=== PATIENT | male | born 1930 | race Caucasian/White ===

== ENCOUNTER 2021-02-28 10:54 | Inpatient (IN) ==
[2021-02-28] MEDS: QUEtiapine Fumarate 100 MG TABLET PO SCH (20:59)
[2021-03-01] MEDS: *HR* LORazepam 0.5 MG TABLET PO PRN ×3 (02:45→20:11)
[2021-03-01] MEDS: Haloperidol Oral Conc 10 MG/5 ML UDC PO PRN ×2 (04:28→10:28)
[2021-03-01] MEDS: Aspirin Enteric Coated 81 MG Tablet PO SCH (09:30)
[2021-03-01] MEDS: Finasteride 5 MG TABLET PO SCH (09:31)
[2021-03-01] MEDS: lisinopriL 5 MG TABLET PO SCH (09:31)
[2021-03-01] MEDS: Furosemide 40 MG TABLET PO SCH (09:31)
[2021-03-01] MEDS: QUEtiapine Fumarate 100 MG TABLET PO SCH (20:10)
[2021-03-02] MEDS: *HR* LORazepam 0.5 MG TABLET PO PRN ×2 (06:54→19:45)
[2021-03-02] MEDS: lisinopriL 5 MG TABLET PO SCH (08:51)
[2021-03-02] MEDS: Finasteride 5 MG TABLET PO SCH (08:51)
[2021-03-02] MEDS: Furosemide 40 MG TABLET PO SCH (08:52)
[2021-03-02] MEDS: Aspirin Enteric Coated 81 MG Tablet PO SCH (08:52)
[2021-03-02] MEDS: QUEtiapine Fumarate 100 MG TABLET PO SCH (19:45)
[2021-03-03] MEDS: Furosemide 40 MG TABLET PO SCH (08:20)
[2021-03-03] MEDS: Finasteride 5 MG TABLET PO SCH (08:20)
[2021-03-03] MEDS: Aspirin Enteric Coated 81 MG Tablet PO SCH (08:20)
[2021-03-03] MEDS: lisinopriL 5 MG TABLET PO SCH (08:20)
[2021-03-03] MEDS: Haloperidol Oral Conc 10 MG/5 ML UDC PO PRN ×3 (08:20→21:41)
[2021-03-03] MEDS: *HR* LORazepam 0.5 MG TABLET PO PRN (11:52)
[2021-03-03] MEDS: QUEtiapine Fumarate 100 MG TABLET PO SCH (20:04)
[2021-03-04] MEDS: Haloperidol Oral Conc 10 MG/5 ML UDC PO PRN ×5 (01:48→20:06)
[2021-03-04] MEDS: Furosemide 40 MG TABLET PO SCH (08:27)
[2021-03-04] MEDS: lisinopriL 5 MG TABLET PO SCH (08:27)
[2021-03-04] MEDS: Finasteride 5 MG TABLET PO SCH (08:27)
[2021-03-04] MEDS: Aspirin Enteric Coated 81 MG Tablet PO SCH (08:27)
[2021-03-04] MEDS: *HR* LORazepam 0.5 MG TABLET PO PRN ×2 (08:27→17:56)
[2021-03-04] MEDS ORDERED: Hyoscyamine SL 0.125 MG TAB.SUBL SL PRN (10:42)
[2021-03-04 14:19] LABS: Bilirubin,Urine Negative (Negative); Blood,Urine Negative (Negative); Clarity,Urine Clear (Clear); Color,Urine Yellow (Yellow); Glucose,Urine (UA) Normal (Normal); Ketones,Urine Negative (Negative); Leukocyte Esterase,Urine Negative (Negative); Nitrite,Urine Negative (Negative); PH,Urine 5.5 pH Units (5.0-8.0); Protein,Urine Negative (Neg-Trace); Urobilinogen,Urine Normal (Normal)
[2021-03-04] MEDS: Hyoscyamine SL 0.125 MG TAB.SUBL SL PRN ×2 (15:50→20:06)
[2021-03-04] MEDS: QUEtiapine Fumarate 100 MG TABLET PO SCH (20:06)
[2021-03-05] MEDS: Haloperidol Oral Conc 10 MG/5 ML UDC PO PRN ×2 (01:22→06:14)
[2021-03-05] MEDS: *HR* LORazepam 0.5 MG TABLET PO PRN ×2 (01:22→08:26)
[2021-03-05] MEDS: Hyoscyamine SL 0.125 MG TAB.SUBL SL PRN ×2 (01:23→06:14)
[2021-03-05] MEDS: Furosemide 40 MG TABLET PO SCH (08:33)
[2021-03-05] MEDS: Aspirin Enteric Coated 81 MG Tablet PO SCH (08:33)
[2021-03-05] MEDS: lisinopriL 5 MG TABLET PO SCH (08:33)
[2021-03-05] MEDS: Finasteride 5 MG TABLET PO SCH (08:33)
[2021-03-05 10:11] VITALS: BP 109/63
[2021-03-05] MEDS ORDERED: Furosemide 40 MG TABLET PO ONE (15:34)
== END 2021-03-05 13:28 | disposition hospice, home (50) | DRG 179 ==
LOC: INPGRE 10:54
PROVIDERS: ADMIT Family Medicine; ATTEND Family Medicine